=== PATIENT | male | born 1945 | race Caucasian/White ===

== ENCOUNTER 2018-12-07 06:14 | Day surgery (SDC) | payer MEDICARE, OTHER ==
[2018-12-07] MEDS ORDERED: Lactated Ringers 1,000 ML IV SCH (07:00)
[2018-12-07] MEDS ORDERED: Propofol 200 MG/20 ML SDV ONE (07:41)
[2018-12-07] MEDS ORDERED: fentaNYL 100 MCG/2 ML SDV ONE (07:41)
--- NOTE | 2018-12-07 11:06 | OR ---
DATE OF PROCEDURE: 12/07/2018 PREOPERATIVE DIAGNOSIS: History of colon polyps. POSTOPERATIVE DIAGNOSES: 1. Diverticulosis. 2. Four small colon polyps. 3. History of colon polyps. PROCEDURES: Colonoscopy to the cecum with biopsy resection of 2 polyps at 30 cm, sent to the laboratory as one specimen; biopsy resection of polyp at 25 cm and biopsy resection of rectal polyp. ANESTHESIA: IV anesthesia with monitored anesthesia care. INDICATION: This 72-year-old white male is referred for a colonoscopy because of history of colon polyps. He says that, four years ago at [facility] in [place], [place], he had over 40 polyps removed. They do not know what kind of polyps they were. I counseled him for colonoscopy with possible polypectomy or biopsy, including risks and alternatives, and he gave his informed consent to proceed. DESCRIPTION OF PROCEDURE: The patient was placed in the left lateral decubitus position. IV anesthesia was administered by the Anesthesia Service. Time-out was held. A rectal exam was performed, which was unremarkable. The flexible video Olympus colonoscope was introduced through his anus, up his rectum and out his colon, all the way to the cecum. En route, we saw multiple left-sided diverticula. There was no bleeding or inflammation associated with any of them. Once the cecum was reached, the scope was slowly withdrawn examining the mucosa throughout. No neoplastic lesions were seen until we reached 30 cm from the anal verge. Here, two small polyps adjacent to each other were removed with the biopsy forceps and sent to the laboratory as one specimen. The scope was withdrawn further, where another small polyp at 25 cm was encountered. This was removed also with the biopsy forceps and sent to the laboratory. The scope was brought back into the rectum, where it was retroflexed. The distal rectum appeared unremarkable. The scope was straightened. A rectal polyp was seen, which was small, and removed with the biopsy forceps. It was sent to the laboratory. The scope was then removed. He tolerated the procedure well. Paul Pete MD /[id number]
== END 2018-12-07 10:05 | disposition home or self-care (01) ==
LOC: JP.SDS 06:14
PROVIDERS: ATTEND Surgery
DX: Z12.11 Encounter for screening for malignant neoplasm of colon (principal); K63.5 Polyp of colon; K62.1 Rectal polyp; K57.30 Diverticulosis of large intestine without perforation or abscess without bleeding; I10 Essential (primary) hypertension; Z87.891 Personal history of nicotine dependence; Z86.010 Personal history of colon polyps; Z88.2 Allergy status to sulfonamides
CPT/HCPCS: 45380; 88305; J2704; J3010; J7120